=== PATIENT | male | born 1955 | race African-American/Black ===

== ENCOUNTER 2017-04-06 00:12 | Emergency (ER) | payer BC, MEDICAID ==
[~2017-04-06] VITALS: Ht 165.1 cm; Wt 79.7 kg
[2017-04-06 00:13] VITALS: BP 159/93
== END 2017-04-06 01:23 | disposition home or self-care (01) ==
LOC: ED 01:15
DX: H10.021 Other mucopurulent conjunctivitis, right eye (principal); I10 Essential (primary) hypertension
CPT/HCPCS: 99283

== ENCOUNTER 2020-02-18 06:38 | Emergency (ER) | payer SELFPAY ==
[~2020-02-18] VITALS: Ht 165.1 cm; Wt 99.8 kg
[2020-02-18] MEDS ORDERED: ASPIRIN 81 MG TABLET CHEW PO ONE (07:00)
[2020-02-18] MEDS ORDERED: ENAL20TA9 PO (07:03)
[2020-02-18] MEDS ORDERED: ATOR20TA37 PO (07:03)
[2020-02-18] MEDS ORDERED: AMLO-211 PO (07:03)
[2020-02-18] MEDS ORDERED: ASPIRIN 81 MG TABLET CHEW ONE (07:08)
[2020-02-18] MEDS ORDERED: MAALOX/HYOSCYAMINE/LIDOCAINE 45 ML BTL ONE (07:29)
[2020-02-18] MEDS ORDERED: MAALOX/HYOSCYAMINE/LIDOCAINE 45 ML BTL PO ONE (07:30)
[2020-02-18 07:31] LABS: BASOPHILS % (AUTO) 1 % (0-1); EOSINOPHILS % (AUTO) 1 % (1-7); LYMPHOCYTES % (AUTO) 18 % (22-44); MEAN CORPUSCULAR HEMOGLOBIN 29.2 pg (27.5-34.5); MEAN PLATELET VOLUME 8.5 fL (7.4-10.4); MONOCYTES % (AUTO) 8 % (2-9); NEUTROPHILS % (AUTO) 72 % (42-75); PLATELET COUNT 205 x10^3/uL (130-400); RED BLOOD COUNT 5.07 x10^6/uL (4.38-5.82); RED CELL DISTRIBUTION WIDTH 15.4 % (9.4-14.8)
[2020-02-18 07:34] LABS: MD NO
--- NOTE | 2020-02-18 07:36 | NUR ---
NO CHANGE IN PAIN/CHARACTERISTIC POST GI COCKTAIL
[2020-02-18 07:39] LABS: ALANINE AMINOTRANSFERASE 19 U/L (12-78); ALBUMIN 3.6 g/dL (3.4-5.0); ANION GAP 4 mmol/L (5-15); CALCIUM 8.3 mg/dL (8.5-10.1); CHLORIDE 109 mmol/L (98-107); CREATININE 1.15 mg/dL (0.7-1.3)
[2020-02-18 07:43] LABS: ALKALINE PHOSPHATASE 85 U/L (45-117); BILIRUBIN,TOTAL 0.6 mg/dL (0.2-1.0); TOTAL PROTEIN 7.4 g/dL (6.4-8.2); TROPONIN I < 0.015 ng/mL (0.000-0.045)
[2020-02-18] MEDS ORDERED: KETOROLAC 30 MG/1 ML ONE (08:15)
[2020-02-18] MEDS ORDERED: KETOROLAC 30 MG/1 ML IVPush ONE (08:30)
[2020-02-18] MEDS ORDERED: KETOROLAC 30 MG/1 ML IM ONE (08:30)
[2020-02-18 08:48] VITALS: BP 156/110
== END 2020-02-18 08:50 | disposition home or self-care (01) ==
LOC: ED 07:11
DX: R07.2 Precordial pain (principal); M94.0 Chondrocostal junction syndrome [Tietze]; I10 Essential (primary) hypertension; E78.5 Hyperlipidemia, unspecified
CPT/HCPCS: 36415; 71045; 80053; 83880; 84484; 85025; 93005; 96374; 99285; J1885

== ENCOUNTER → 2020-08-05 | Outpatient (CLI) | payer BC, OTHER ==
[~2020-08-05] MED LIST: AMLO-211 PO; ASPI81TA45 PO; ATOR20TA37 PO; ENAL20TA9 PO; NAPR-850 PO; OMEP20TA62 PO
[2020-08-05 12:27] LABS: ALANINE AMINOTRANSFERASE 24 U/L (12-78); ALBUMIN 3.6 g/dL (3.4-5.0); ANION GAP 5 mmol/L (5-15); CALCIUM 8.7 mg/dL (8.5-10.1); CHLORIDE 110 mmol/L (98-107); CREATININE 1.04 mg/dL (0.7-1.3)
[2020-08-05 12:29] LABS: ALKALINE PHOSPHATASE 80 U/L (45-117); TOTAL PROTEIN 7.2 g/dL (6.4-8.2)
== END | disposition home or self-care (01) ==
LOC: STAR 10:37
PROVIDERS: ATTEND Surgery
DX: Z01.818 Encounter for other preprocedural examination (principal); N63.10 Unspecified lump in the right breast, unspecified quadrant; Z20.822 Contact with and (suspected) exposure to COVID-19
CPT/HCPCS: 36415; 80053; 93005; U0003

== ENCOUNTER 2020-08-11 05:58 | Day surgery (SDC) | payer BC ==
[~2020-08-11] VITALS: Ht 165.1 cm; Wt 95.5 kg
[2020-08-11] MEDS ORDERED: CEFAZOLIN 1,000 MG ONE (06:34)
[2020-08-11] MEDS ORDERED: PROPOFOL 10 MG/ML, 20ML ONE (06:34)
[2020-08-11] MEDS ORDERED: FENTANYL PF 100 MCG/2ML ONE (06:34)
[2020-08-11] MEDS ORDERED: MIDAZOLAM 1 MG/ML, 2ML ONE (06:34)
[2020-08-11] MEDS ORDERED: ONDANSETRON 2MG/ML, 2ML ONE (06:34)
[2020-08-11] MEDS ORDERED: EPINEPHRINE 1 MG/ML, 1ML ONE (06:39)
[2020-08-11] MEDS ORDERED: BUPIVACAINE/PF 0.5% ONE (06:39)
[2020-08-11] MEDS ORDERED: OXYcodone 5 MG/5 ML ORAL.SOL UDC PO PRN (07:00)
[2020-08-11] MEDS ORDERED: HYDROmorphone 1 MG/ML, 1ML INJ IVPush PRN (07:00)
[2020-08-11] MEDS ORDERED: ONDANSETRON 2MG/ML, 2ML IVPush PRN (07:00)
[2020-08-11] MEDS ORDERED: HYDROcodone/APAP 7.5-325MG/15ML UDC PO PRN (07:00)
[2020-08-11] MEDS ORDERED: FENTANYL PF 100 MCG/2ML IV PRN (07:00)
[2020-08-11] MEDS ORDERED: PROMETHAZINE 25 MG/ML, 1ML IVPush PRN (07:00)
[2020-08-11] MEDS ORDERED: MEPERIDINE/PF 25MG/0.5ML IVPush PRN (07:00)
[2020-08-11] MEDS ORDERED: LACTATED RINGERS 1,000 ML IV SCH (07:00)
[2020-08-11] MEDS ORDERED: CHLORHEXIDINE 15 ML UDC PO ONE (07:00)
[2020-08-11 07:02] VITALS: BP 138/95
[2020-08-11] MEDS ORDERED: DEXAMETHASONE 4 MG/ML, 1ML ONE (07:19)
[2020-08-11] MEDS ORDERED: HYDR-2214 PO (08:07)
== END 2020-08-11 09:15 | disposition home or self-care (01) ==
LOC: OUT 05:58
PROVIDERS: ATTEND Surgery
DX: N63.15 Unspecified lump in the right breast, overlapping quadrants (principal); I10 Essential (primary) hypertension; E78.00 Pure hypercholesterolemia, unspecified; F32.9 Major depressive disorder, single episode, unspecified; Z79.82 Long term (current) use of aspirin; Z79.899 Other long term (current) drug therapy; Z87.891 Personal history of nicotine dependence; Z88.0 Allergy status to penicillin; Z88.2 Allergy status to sulfonamides; Z98.890 Other specified postprocedural states
CPT/HCPCS: 19120; 88307; J0171; J0690; J1100; J2250; J2405; J2704; J3010; J7120